=== PATIENT | male | born 1950 | race Asian ===

== ENCOUNTER 2019-01-08 12:30 | Inpatient (IN) | payer OTHER, MEDICARE ==
[~2019-01-08] VITALS: Ht 175.3 cm; Wt 73.5 kg
[~2019-01-08 12:30] MED LIST: GLIMEPIRIDE2 MG PO; JANUMET 50-5001 EACH PO
[2019-01-08 12:35] VITALS: BP 161/75
[2019-01-08 12:56] VITALS: BP 161/75
[2019-01-08] MEDS ORDERED: DEXTROSE 50% SYRINGE 50 ML IV PRN (13:00)
--- NOTE | 2019-01-08 13:05 | NUR ---
Notified Dr. Prather for orders. Temp is 101.6. Orders received and implemented.
[2019-01-08] MEDS: SODIUM CHLORIDE 0.9% 1000ML 1,000 ML IV SCH (13:32)
[2019-01-08] MEDS: ACETAMINOPHEN 325 MG TAB PO PRN ×2 (13:32→22:19)
[2019-01-08] MEDS: CEFTRIAXONE SOD 1 GM/NS 50 ML 50 ML IV SCH ×2 (13:46→20:30)
[2019-01-08 13:48] LABS: BILIRUBIN,URINE NEGATIVE (NEGATIVE); CLARITY,URINE SL CLOUDY (CLEAR); COLOR,URINE YELLOW (YELLOW); KETONES,URINE TRACE (NEGATIVE); LEUKOCYTE ESTERASE ,URINE NEGATIVE (NEGATIVE); NITRITE,URINE NEGATIVE (NEGATIVE); PROTEIN,URINE DIPSTICK 1+ (NEGATIVE); URINE UROBILINOGEN 0.2 mg/dL (0.2 - 1)
[2019-01-08 13:48] LABS: BASOPHILS # (AUTO) 0.1 (0.0-0.1); BASOPHILS % 0.5 % (0.0-1.0); EOSINOPHILS # (AUTO) 0.2 (0.0-0.4); HEMATOCRIT 36.9 % (38.2-49.6); HEMOGLOBIN 13.4 g/dL (14.0-18.0); LYMPHOCYTES # (AUTO) 1.3 (1.0-3.2); LYMPHOCYTES % 7.9 % (18.0-39.1); MEAN CORPUSCULAR HEMOGLOBIN 30.1 pg (28-32); MEAN CORPUSCULAR HGB CONC 36.3 g/dL (31-35); MEAN CORPUSCULAR VOLUME 82.9 fL (81-99); MONOCYTES # (AUTO) 1.3 (0.2-0.8); NEUTROPHILS # (AUTO) 12.9 (2.1-6.9); NEUTROPHILS % 81.4 % (38.7-80.0); PLATELET COUNT 281 x10e3/uL (140-360); RED BLOOD COUNT 4.45 x10e6/uL (4.3-5.7); RED CELL DISTRIBUTION WIDTH 13.2 % (11.7-14.4)
[2019-01-08 14:00] VITALS: BP 161/75
[2019-01-08 14:02] LABS: BACTERIA,URINE MODERATE /HPF; EPITHELIAL CELLS,URINE FEW /LPF; WBC,URINE (MAN) 0-5 /HPF (0-5)
[2019-01-08 14:17] LABS: ALANINE AMINOTRANSFERASE 21 IU/L (0-55); ALBUMIN 3.1 g/dL (3.5-5.0); ANION GAP 15.9 mmol/L (8-16); BLOOD UREA NITROGEN 11 mg/dL (7-26); BUN/CREATININE RATIO 12 (6-25); CALCIUM 9.2 mg/dL (8.4-10.2); CARBON DIOXIDE 21 mmol/L (22-29); CHLORIDE 100 mmol/L (98-107); EST GLOMERULAR FILTRATION RATE > 60 ML/MIN (60-); GLUCOSE 287 mg/dL (74-118); POTASSIUM 3.9 mmol/L (3.5-5.1); SODIUM 133 mmol/L (136-145)
[2019-01-08 14:18] LABS: ALBUMIN/GLOBULIN RATIO 0.7 (0.8-2.0); ALKALINE PHOSPHATASE 66 IU/L (40-150)
--- NOTE | 2019-01-08 15:54 | Diagnostic Imaging Report ---
EXAM: CT Chest WITH intravenous contrast 01/08/2019 12:36 PM INDICATION: COMPARISON: Pneumonia TECHNIQUE: Chest was scanned utilizing a multidetector helical scanner from the lung apex through the level of the adrenal glands after administration of IV contrast. Coronal and sagittal reformations were obtained. Routine protocol was performed. IV CONTRAST: 100mL Isovue 370 RADIATION DOSE: Total DLP: 529.4 mGy*cm. Dose modulation, iterative reconstruction, and/or weight based adjustment of the mA/kV was utilized to reduce the radiation dose to as low as reasonably achievable. COMPLICATIONS: None FINDINGS: LINES/ TUBES: None. LUNGS AND AIRWAYS: There is a 16 x 11 mm structure in the left main bronchus with additional more distal left upper lobe segmental and subsegmental bronchial obstruction. There is extensive lingular and medial left upper lobe consolidation. PLEURA: The pleural spaces are clear. HEART AND MEDIASTINUM: The thyroid gland appears unremarkable. No supraclavicular lymphadenopathy. Scattered prominent subcentimeter mediastinal lymph nodes. No axillary, subpectoral, or internal mammary lymphadenopathy. The heart is not enlarged. No pericardial effusion. UPPER ABDOMEN: Limited contrast-enhanced images of the upper abdomen demonstrate diffuse decreased hepatic parenchymal attenuation consistent with hepatic steatosis. Small sliding hiatal hernia. Otherwise, no significant abnormality in the partially visualized liver, gallbladder, spleen, adrenals, upper poles of kidneys, and pancreas. BONES: The visualized bony thorax is within normal limits. SOFT TISSUES: Unremarkable. IMPRESSION: Left mainstem bronchus 16 x 11 mm obstructive lesion, more likely aspirated content than an obstructive neoplasm. Extensive left upper lobe consolidation and bronchial obstruction likely represents postobstructive pneumonia. Hepatic steatosis. RECOMMENDATIONS: Consider bronchoscopy for evaluation of obstructing lesion in left mainstem bronchus. Consider follow-up chest CT in 6-8 weeks to assess for resolution and exclude underlying neoplasm. Findings were communicated to Kerline NICOLE of the clinical care team who understands and will communicate to Dr. Prather. Signed by: Herman Mckee MD on 01/08/2019 3:51 PM
[2019-01-08] MEDS: AZITHROMYCIN 500MG/NS 250 ML 250 ML IV SCH (15:58)
[2019-01-08 16:00] VITALS: BP 134/62
[2019-01-08] MEDS ORDERED: VITAMIN D1000 UNI1 PO (16:24)
[2019-01-08] MEDS ORDERED: MULTIPLE VITAM1 EAC1 PO (16:24)
[2019-01-08] MEDS ORDERED: Tresiba SQ (16:24)
[2019-01-08] MEDS ORDERED: JANUMET 50-1,01 EACH PO (16:24)
[2019-01-08] MEDS ORDERED: ASPIR 8181 MG PO (16:24)
[2019-01-08] MEDS: INSULIN LISPRO 100 UNIT/1 ML 3ML VIAL SQ SCH ×2 (16:40→20:40)
[2019-01-08] MEDS: SITAGLIPTIN 100 MG TAB PO SCH (17:09)
[2019-01-08] MEDS: GLIMEPIRIDE 2 MG TAB PO SCH (17:09)
[2019-01-08] MEDS: METFORMIN HCL 500 MG TAB PO SCH (17:09)
[2019-01-08 19:49] VITALS: BP 140/69
--- NOTE | 2019-01-08 20:38 | NUR ---
pulmonary consult dictated [id number]
[2019-01-08] MEDS ORDERED: IOPAMIDOL 370 MG/ML 200 ML INFUS..BTL INJ ONE (21:37)
[2019-01-08] MEDS ORDERED: SODIUM CHLORIDE 0.9% 50ML 50 ML ONE (21:37)
[2019-01-08 23:01] VITALS: BP 140/69
[2019-01-08] MEDS: PIPER-TAZ 3.375 GM 50 ML IV SCH (23:55)
[2019-01-09] VITALS (7 sets, daily range): BP systolic 109–153; BP diastolic 58–70
[2019-01-09] MEDS: SODIUM CHLORIDE 0.9% 1000ML 1,000 ML IV SCH ×3 (01:53→20:38)
--- NOTE | 2019-01-09 03:14 | Consultation ---
DATE OF CONSULTATION: 01/08/2019 Pulmonary Medicine Consult REFERRING PHYSICIAN: Dr Malachi Prather ADDITIONAL REFERRING PHYSICIAN: Dr. Ray Martines. REASON FOR REFERRAL: Abnormal chest radiography. HISTORY OF PRESENT ILLNESS: Mr. Polanco is a pleasant 68-year-old gentleman with abnormal chest radiography. The patient was in excellent state of health reportedly until one week previous. He developed cough, decreased appetite. He had some chills and associated fevers, which are measured to 101.6 here so far. No phlegm. Had rare hemoptysis one week ago. Because of worsening, he went to his primary care doctor, who appropriately diagnosed pneumonia. The patient was recommended to the hospital. In the emergency room, he was given antibiotics and CT chest demonstrates a 16 x 11 mm structure contained within the left main bronchus with additional more distal left upper lobe segmental and subsegmental bronchial pneumonitis. Rest of the lungs are unremarkable. There is appearance of early hiatal hernia. No history of allergies. No asthma. Mild GERD. He denies totally any inhalation episodes. No syncope episodes. No history of any significant pneumonias in the past. The patient had a screening chest x-ray perioperatively a year ago, which he was told it was normal. PAST MEDICAL HISTORY: Diabetes, appendectomy, lumbar surgery, hernia repair, and TURP 2018. MEDICATIONS: Medication list reviewed per the chart and record. ALLERGIES: NO KNOWN DRUG ALLERGIES. SOCIAL HISTORY: No drinking. No drugs. The patient formally smoked from age 27 to 52, two packs per day. 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 He is from [place], but lives in [place] since 1993. No pets. FAMILY HISTORY: Noncontributory. REVIEW OF SYSTEMS: GENERAL: No weight changes, chronically. HEENT: Denies jaundice. OPHTHALMOLOGIC: No double vision. ENT: No mouth ulcers. ENDOCRINE: No thyroid disease. PULMONARY: No COPD. CARDIAC: No heart attacks. GI: No constipation. : No blood in urine. INTEGUMENT: No rashes. NEUROLOGIC: No seizures. PSYCHIATRIC: No depression. OBJECTIVE: VITAL SIGNS: Afebrile, but also intermittently febrile for the majority of the day. HEENT: Normocephalic and atraumatic. GENERAL: In no distress, in bed, talking. NECK: Supple. Throat midline. LUNGS: Bilateral air entry, few rhonchi, rare wheezes. CARDIOVASCULAR: S1 and S2. No murmurs, rubs, or gallops. ABDOMINAL: Soft and nontender. EXTREMITIES: No clubbing, no cyanosis. There is no edema. INTEGUMENT: No rash or purpura. LABORATORY DATA: 16 white count, 37 hematocrit, and 281 platelets. 3.9 potassium, 11 BUN, and 0.9 creatinine. Albumin is 3.1. Globulin 4.2. IMPRESSION AND PLAN: 1. Postobstructive pneumonia. 2. Left mainstem partial obstruction, clinically more likely a common type malignant tumor. Differential diagnosis includes carcinoid, benign hematomas, cartilaginous tumors, cannot rule out this. Other malignant tumors or foreign bodies are still feasible. 3. Former smoker, quit long ago. 4. Diabetes. 5. History of lumbar surgery, appendectomy, hernia repair, and TURP. 6. Diabetes. 7. History of transurethral resection of the prostate. 8. History of lumbar surgery. At this time, we will schedule him for bronchoscopy for diagnostic purposes. We also hope for therapeutic clearance of the postobstructive state the patient in, although this may have to be a staged procedure depends on the bleed ability and pathology of the intra-airway tumor. The patient was counseled on risks, benefits, and alternatives, including the slightly increased risk of bleeding here. The patient should have aggressive antibiotics for postobstructive pneumonia. Check coagulation times as well as HIV testing. We will follow along closely. Thank you very much, Dr. Martines and Dr. Prather for this consult. Please call for questions. MD JENNIFER Braswell/AARTI /[id number] BRANDEN
--- NOTE | 2019-01-09 03:34 | History and Physical ---
This is a 68-year-old gentleman, who comes in with shortness of breath, chills, and fever. HISTORY OF PRESENTING ILLNESS: This is Mr. Crescencio Polanco who started out with shoulder pain about 4 weeks saturation, noted as shoulder pain on the tip of the shoulder and also on the back, and the patient started to have progressive pain, worsening. About a week prior to admission, the patient started to have some chills, some fever, cough and congestion and he had gone to a trip to [place] and on the way he did experience some chills, but after he came back, visited Dr. Martines, his primary care physician. The patient was found to have pneumonia and sent over for admission. PAST MEDICAL HISTORY: History of diabetes mellitus, history of hyperlipidemia, and history of vitamin D deficiency. MEDICINES: He takes at home are: 1. Cholecalciferol. 2. Vitamin D3 of 2000 units daily. 3. Glimepiride 2 mg twice a day. 4. Multivitamin. 5. Janumet, which sitagliptin with metformin twice a day . The patient is also taking Tresiba 36 units of insulin daily. No statin noted. PAST SURGICAL HISTORY: Noncontributory. FAMILY HISTORY: History of sister with diabetes mellitus. REVIEW OF SYSTEMS: Positive for chest pain, right-sided. Positive for some shortness of breath. Positive for chills. Positive for fever. Positive for fatigue. Positive for congestion and positive for nonproductive cough. No nausea or vomiting. No constipation. No rectal bleeding. No hematochezia. No hematemesis. ALLERGIES: NO KNOWN DRUG ALLERGIES. PHYSICAL EXAMINATION: VITAL SIGNS: Temperature is 101.6, T-max is 101.6, pulse of 110, blood pressure is 161/75. The patient's pulse oximetry of 96%. HEENT: Normocephalic, atraumatic. Pupils are reactive to light and accommodation. CVS: S1 and S2 are normal. Regular rate and rhythm. LUNGS: Decreased air entry into the left side. Positive for some rhonchi. EXTREMITIES: No clubbing, no cyanosis, no edema. GI: No abdominal tenderness and no guarding noted. LABORATORY VALUES: Initial white count is 15,000, hemoglobin of 13.4, hematocrit of 36.9. Neutrophil count is 81.5. Chemistry; sodium 133, potassium 3.9, BUN of 11, creatinine 0.90. Glucose is 287, albumin 3.1, globulin is 4.2. Urine, cloudy, negative leuk esterase and negative nitrites. Chemistry shows sodium of 133, potassium is 3.9, BUN 11, creatinine 0.90, glucose of 287, and total protein 7.3. MICROBIOLOGY: Urine cultures are pending. Sputum is pending. IMAGING STUDIES: CT of the chest with contrast was done, shows left main bronchus 16 x 11 obstructive lesion. We will likely aspirate, can turn into an obstructing neoplasm. Extensive left upper lobe consolidation and bronchial obstruction, likely representing postobstructive pneumonia. Also, the patient's CT shows hepatic steatosis. ASSESSMENT: Postobstructive pneumonia. The patient is currently on azithromycin and Rocephin. We will change that. The patient home medication, which includes sitagliptin, glimepiride, and metformin will be started. We will hold back on the metformin. The patient needs bronchoscopy. Dr. Lemon has been consulted. Possible biopsy and possible bronchoscopy will be done tomorrow. The patient kept n.p.o. after midnight. Further recommendation per clinical course. We will continue to monitor the patient and immediate bronchoscopy for lesion in the left main bronchus. Further recommendation per clinical course. We will continue to monitor the patient. Continue on his oral medications and also replace insulin. Further recommendation per clinical course pending. MD ELTON Sampson/MODL /[id number]
[2019-01-09] MEDS: PIPER-TAZ 3.375 GM 50 ML IV SCH ×4 (05:28→23:33)
[2019-01-09 06:42] LABS: BASOPHILS # (AUTO) 0.1 (0.0-0.1); BASOPHILS % 0.7 % (0.0-1.0); EOSINOPHILS # (AUTO) 0.2 (0.0-0.4); EOSINOPHILS % 1.4 % (0.0-6.0); HEMATOCRIT 35.7 % (38.2-49.6); HEMOGLOBIN 12.8 g/dL (14.0-18.0); LYMPHOCYTES # (AUTO) 2.1 (1.0-3.2); LYMPHOCYTES % 12.3 % (18.0-39.1); MEAN CORPUSCULAR HEMOGLOBIN 29.5 pg (28-32); MEAN CORPUSCULAR HGB CONC 35.9 g/dL (31-35); MEAN CORPUSCULAR VOLUME 82.3 fL (81-99); MONOCYTES # (AUTO) 1.6 (0.2-0.8); MONOCYTES % 9.8 % (4.4-11.3); NEUTROPHILS # (AUTO) 12.4 (2.1-6.9); NEUTROPHILS % 73.8 % (38.7-80.0); PLATELET COUNT 271 x10e3/uL (140-360); RED BLOOD COUNT 4.34 x10e6/uL (4.3-5.7); RED CELL DISTRIBUTION WIDTH 13.1 % (11.7-14.4)
[2019-01-09 06:51] LABS: INR 1.1; PROTHROMBIN TIME 14.7 seconds (11.9-14.5)
[2019-01-09 06:52] LABS: PARTIAL THROMBOPLASTIN TIME 37.4 seconds (23.8-35.5)
[2019-01-09 07:14] LABS: ANION GAP 14.8 mmol/L (8-16); BLOOD UREA NITROGEN 10 mg/dL (7-26); BUN/CREATININE RATIO 13 (6-25); CALCIUM 8.9 mg/dL (8.4-10.2); CARBON DIOXIDE 22 mmol/L (22-29); CHLORIDE 105 mmol/L (98-107); CREATININE, SERUM 0.76 mg/dL (0.72-1.25); EST GLOMERULAR FILTRATION RATE > 60 ML/MIN (60-); GLUCOSE 89 mg/dL (74-118); POTASSIUM 3.8 mmol/L (3.5-5.1); SODIUM 138 mmol/L (136-145)
--- NOTE | 2019-01-09 07:18 | Progress Note ---
DATE: SUBJECTIVE: The patient is a 68-year-old gentleman, who comes in with postobstructive pneumonia. Fever is dissipated. The patient is feeling better. Scheduled for bronchoscopy with Dr. Lemon today. Currently afebrile. No chest pain. No shortness of breath. No nausea, vomiting, or diarrhea. No constipation. No rectal bleeding. Still complains of the left shoulder pain. MEDICATIONS: He is on are aspirin on hold, azithromycin, dextrose, glimepiride, metformin, Zosyn, and fluids. The patient is also on sitagliptin. PHYSICAL EXAMINATION: VITAL SIGNS: Temperature is 98.7, pulse of 72, respirations of 18, blood pressure is 116/58, pulse oximetry of 96%. HEENT: Normocephalic, atraumatic. Pupils are reactive to light and accommodation. CVS: S1 and S2 are normal. Regular rate and rhythm. ABDOMEN: Nontender, nondistended. LUNGS: Positive for rhonchi on the left side. EXTREMITIES: No clubbing, no cyanosis, no edema. LABORATORY VALUES: Pending today. Yesterday's white count is 15.88. Chemistries are still pending. Glucose is running in the 250s to 270s. Urine is moderate bacteria. Microbiological studies, urine culture pending and sputum culture not available yet. ASSESSMENT: 1. Postobstructive pneumonia. The patient has been switched to Zosyn for better coverage. 2. Left main stem obstruction secondary to tumor. Differentials have been discussed with Dr. Lemon. The patient is scheduled for bronchoscopy today. 3. History of smoking in the past 20 years ago. He has smoked 2 packs a day. 4. Diabetes mellitus. Continue with insulin sliding scale. We will also add 10 units of Lantus at nighttime. 5. Hypertension and hyperlipidemia. We will continue monitoring the patient. Further recommendation per clinical course. We will continue to monitor the patient and possible discharge in 1 to 2 days depending on bronchoscopy and also findings on bronchoscopy. MD ELTON Sampson/USAMAL /[id number]
[2019-01-09] MEDS: INSULIN LISPRO 100 UNIT/1 ML 3ML VIAL SQ SCH ×4 (07:30→22:28)
--- NOTE | 2019-01-09 07:30 | NUR ---
PATIENT IS ALERT, AWAKE, IN STABLE CONDITION WITH NO S/S OF RESPIRATORY DISTRESS. NO PAIN VOICED. PATIENT IS NPO FOR PROCEDURE TODAY. PRESENT IN ROOM. CALL LIGHT IS WITHIN REACH, PATIENT INSTRUCTED TO CALL FOR ASSISTANCE NEEDED.
[2019-01-09 07:47] LABS: HIV 1&2 AB SCREEN NON-REACTIVE (NONREACTIVE)
[2019-01-09] MEDS: SITAGLIPTIN 100 MG TAB PO SCH ×2 (08:00→17:04)
[2019-01-09 09:23] LABS: BAND NEUTROPHILS % (MANUAL) 1 %; EOSINOPHILS % (MANUAL) 3 % (0-7); LYMPHOCYTES % (MANUAL) 15 % (19-48); MONOCYTES % (MANUAL) 10 % (3.4-9.0); NEUTROPHILS % (MANUAL) 66 % (40-74)
[2019-01-09 09:24] LABS: PLATELET ESTIMATE ADEQUATE; PLATELET MORPHOLOGY COMMENT NORMAL
[2019-01-09 09:42] LABS: RBC MORPHOLOGY COMMENT NORMAL
[2019-01-09] MEDS ORDERED: LIDOCAINE HCL 2% 30 ML TUBE ONE (10:23)
[2019-01-09] MEDS ORDERED: LIDOCAINE HCL 4% 50 ML BTL ONE (10:23)
--- NOTE | 2019-01-09 10:31 | NUR ---
PATIENT OFF THE UNIT PER STRETCHER TO OR- PATIENT IN STABLE CONDITION WITH NO S/S OF RESPIRATORY DISTRESS.
--- NOTE | 2019-01-09 13:19 | Diagnostic Imaging Report ---
EXAMINATION: CHEST SINGLE (PORTABLE) INDICATION: Status post bronchoscopy. COMPARISON: Chest CT of 01/08/2019 FINDINGS: LINES/TUBES:None LUNGS:The lung volumes are low. Left lingular and upper lobe consolidation as previously seen on chest CT of 01/08/2019. PLEURA:No pleural effusion or pneumothorax. MEDIASTINUM:The cardiomediastinal silhouette appears unchanged in size and shape. BONES/SOFT TISSUES:No acute osseous injury. ABDOMEN:No free air under the diaphragm. IMPRESSION: Status post left bronchoscopy. No pneumothorax. Unchanged consolidation of the left upper lobe and lingula as seen on prior chest CT. Signed by: Herman Mckee MD on 01/09/2019 1:16 PM
[2019-01-09] MEDS: MULTIVITAMINS/MINERALS TAB PO SCH (14:16)
[2019-01-09] MEDS: AZITHROMYCIN 500MG/NS 250 ML 250 ML IV SCH (14:16)
[2019-01-09] MEDS: CHOLECALCIFEROL 1,000 UNIT TAB PO SCH (14:16)
--- NOTE | 2019-01-09 14:18 | NUR ---
PATIENT RETURN BACK TO THE UNIT- IN STABLE CONDITION WITH NO S/S OF RESPIRATORY DISTRESS. NO PAIN VOICED. IV FLUIDS INFUSING. FAMILY MEMBERS PRESENT IN ROOM. CALL LIGHT IS WITHIN REACH, PATIENT INSTRUCTED TO CALL FOR ASSISTANCE NEEDED.
[2019-01-09] MEDS ORDERED: MIDAZOLAM HCL 2 MG/2 ML VIAL ONE (17:44)
[2019-01-09] MEDS ORDERED: FENTANYL CITRATE/PF 100MCG/2 ML INJ ONE (17:44)
[2019-01-09] MEDS ORDERED: DEXAMETHASONE SOD PHOS INJ 4 MG/ML VIAL ONE (17:59)
[2019-01-09] MEDS ORDERED: LIDOCAINE HCL 2% LOCAL INJ 5 ML SDV VIAL INJ ONE (17:59)
[2019-01-09] MEDS ORDERED: EPHEDRINE SULFATE INJ 50 MG/10 ML SYR ONE (17:59)
[2019-01-09] MEDS ORDERED: PROPOFOL IV EMULSION 10 MG/ML 20 ML VIAL ONE (17:59)
[2019-01-09] MEDS ORDERED: ONDANSETRON HCL INJ 2MG/ML 2ML 2 MG/ML VIAL ONE (17:59)
[2019-01-09] MEDS ORDERED: SEVOFLURANE INHAL SOLN 250 ML PEN BTL ONE (17:59)
--- NOTE | 2019-01-09 19:11 | NUR ---
PATIENT IS IN STABLE CONDITION WITH NO S/S OF RESPIRATORY DISTRESS. NO PAIN VOICED. IV FLUIDS INFUSING. FAMILY MEMBERS PRESENT IN ROOM. CALL LIGHT IS WITHIN REACH, PATIENT INSTRUCTED TO CALL FOR ASSISTANCE NEEDED. BEDSIDE REPORT GIVEN TO ONCOMING NURSE.
[2019-01-09] MEDS ORDERED: INSULIN GLARGINE 100 UNITS/ML VIAL SQ SCH (21:00)
--- NOTE | 2019-01-09 22:58 | NUR ---
Pulmonary Medicine DATE OF ENCOUNTER: 01/09/2019 SUBJECTIVE: No new complaints. No hemoptysis. Patient ate okay yesterday. Room air FiO2. REVIEW OF SYSTEMS: No headaches, no bleeding OBJECTIVE: VITAL SIGNS: Fevers are broken.Vital signs stable per record. HEENT: Normocephalic and atraumatic. GENERAL: In no distress, in bed, talking. NECK: Supple. Throat midline. LUNGS: Bilateral air entry, few rhonchi, rare wheezes. CARDIOVASCULAR: S1 and S2. No murmurs, rubs, or gallops. ABDOMINAL: Soft and nontender. EXTREMITIES: No clubbing, no cyanosis. There is no edema. INTEGUMENT: No rash or purpura. LABORATORY DATA: 17 white count, 36 hematocrit, 271 platelets. 3.8 potassium, 10 BUN, 0.8 creatinine. INR 1.10 IMPRESSION AND PLAN: 1. Postobstructive pneumonia. 2. Left mainstem partial airway obstructing tumor. ---s/p bronchoscopy with biopsies 3. Former smoker, quit long ago. 4. Diabetes. 5. History of lumbar surgery, appendectomy, hernia repair, and TURP. 6. Diabetes. 7. History of transurethral resection of the prostate. 8. History of lumbar surgery. Bronchoscopy today. Follow-up tumor pathology. I discussed with the patient's as well as his primary doctor. Can resume diet after bronchoscopy. --The pathology will dictate treatment--whether chemotherapy, radiation, surgical. As long as a high risk for postobstructive pneumonia persists, conservative follow-up will not be a good option even if this was a more benign etiology. Thank you very much, Dr. Martines and Dr. Prather for this consult. Please call for questions.
[2019-01-10] VITALS (8 sets, daily range): BP systolic 118–156; BP diastolic 56–74
[2019-01-10] MEDS: PIPER-TAZ 3.375 GM 50 ML IV SCH ×4 (05:00→23:03)
[2019-01-10 05:56] LABS: BASOPHILS # (AUTO) 0.1 (0.0-0.1); BASOPHILS % 0.4 % (0.0-1.0); EOSINOPHILS # (AUTO) 0.1 (0.0-0.4); EOSINOPHILS % 0.5 % (0.0-6.0); HEMATOCRIT 35.1 % (38.2-49.6); HEMOGLOBIN 12.3 g/dL (14.0-18.0); LYMPHOCYTES # (AUTO) 2.2 (1.0-3.2); LYMPHOCYTES % 13.5 % (18.0-39.1); MEAN CORPUSCULAR HEMOGLOBIN 29.1 pg (28-32); MEAN CORPUSCULAR VOLUME 83.2 fL (81-99); MONOCYTES # (AUTO) 1.4 (0.2-0.8); MONOCYTES % 8.4 % (4.4-11.3); NEUTROPHILS # (AUTO) 12.2 (2.1-6.9); NEUTROPHILS % 75.4 % (38.7-80.0); PLATELET COUNT 291 x10e3/uL (140-360); RED BLOOD COUNT 4.22 x10e6/uL (4.3-5.7); RED CELL DISTRIBUTION WIDTH 13.1 % (11.7-14.4)
[2019-01-10 06:20] LABS: ANION GAP 14.2 mmol/L (8-16); BLOOD UREA NITROGEN 13 mg/dL (7-26); BUN/CREATININE RATIO 17 (6-25); CALCIUM 9.1 mg/dL (8.4-10.2); CARBON DIOXIDE 22 mmol/L (22-29); CHLORIDE 107 mmol/L (98-107); CREATININE, SERUM 0.78 mg/dL (0.72-1.25); EST GLOMERULAR FILTRATION RATE > 60 ML/MIN (60-); GLUCOSE 158 mg/dL (74-118); POTASSIUM 4.2 mmol/L (3.5-5.1); SODIUM 139 mmol/L (136-145)
--- NOTE | 2019-01-10 06:50 | NUR ---
rounded with scene shifter nurse, patient aware of change and in no distress with family at bedside. call peter within reach and bed in lowest position.
--- NOTE | 2019-01-10 06:55 | NUR ---
ROUNDED WITH ESTIMATING ENGINEER NURSE, PATIENT ALERT AND ORIENTED WITH AT BEDSIDE AND IN NO DISTRESS, CALL FU WITHIN REACH AND BED IN LOWEST POSITION.
[2019-01-10] MEDS ORDERED: CHLORASEPTIC SPRAY 177 ML BTL MM PRN (07:15)
[2019-01-10] MEDS: GLIMEPIRIDE 2 MG TAB PO SCH ×2 (08:15→17:30)
[2019-01-10] MEDS: METFORMIN HCL 500 MG TAB PO SCH ×2 (08:15→17:30)
[2019-01-10] MEDS: MULTIVITAMINS/MINERALS TAB PO SCH (08:15)
[2019-01-10] MEDS: INSULIN GLARGINE 100 UNITS/ML VIAL SQ SCH (08:15)
[2019-01-10] MEDS: CHOLECALCIFEROL 1,000 UNIT TAB PO SCH (08:15)
[2019-01-10] MEDS: SITAGLIPTIN 100 MG TAB PO SCH ×2 (08:15→17:30)
[2019-01-10] MEDS: GUAIFENESIN 200 MG/10 ML UDC PO PRN ×2 (08:15→14:07)
[2019-01-10] MEDS: INSULIN LISPRO 100 UNIT/1 ML 3ML VIAL SQ SCH ×4 (08:15→20:36)
--- NOTE | 2019-01-10 09:52 | Progress Note ---
DATE: SUBJECTIVE: This patient was admitted to the hospital for postobstructive pneumonia. The patient underwent a bronchoscopy yesterday. The scope could not pass through the tumor. The patient biopsy taken of tumor and awaiting biopsy results. Currently, the patient is slightly congested with slight amount of cough and also with sore throat. No chest pain. No shortness of breath. No nausea, vomiting, or diarrhea. No constipation. No rectal bleeding. OBJECTIVE: VITAL SIGNS: Temperature is 97.0, pulse of 67, respirations of 16, and blood pressure is 118/56. HEENT: Normocephalic and atraumatic. Pupils are reactive to light and accommodation. CVS: S1 and S2 normal. Regular rate and rhythm. LUNGS: Positive for rhonchi on the left side. ABDOMEN: Nontender and nondistended. EXTREMITIES: No clubbing, no cyanosis, no edema. LABORATORY VALUES: [place] [address] today, hemoglobin of 12.3, and hematocrit of 35.1. Left shift present. Coags are normal. Chemistry shows sodium of 139, potassium of 4.2, BUN of 13, creatinine of 0.79, glucose is slightly elevated at 158. HIV serologies negative. Microbiology, Gram stains pending cultures, a few gram-positive rods. IMAGING STUDIES: Chest x-ray done yesterday. After bronch, unchanged consolidation of the left upper lobe. ASSESSMENT: Massive left main bronchus. PLAN: 1. To await biopsy result. 2. Postobstructive pneumonia. Continue with Zosyn and azithromycin. We will continue to monitor the patient. 3. The patient needs staging. 4. The patient will need pulmonary function testing. 5. We will continue with antidiabetic medications and also hypertensive medication. Further recommendation per clinical course. Case discussed with the at bedside and also the patient will discuss further care with Dr. Francisco eLmon. MD ELTON Sampson/AARTI /[id number]
[2019-01-10] MEDS: SODIUM CHLORIDE 0.9% 1000ML 1,000 ML IV SCH ×2 (12:10→19:26)
[2019-01-10] MEDS: AZITHROMYCIN 500MG/NS 250 ML 250 ML IV SCH (13:20)
--- NOTE | 2019-01-10 13:39 | NUR ---
Pulmonary Medicine DATE OF ENCOUNTER: 01/10/2019 SUBJECTIVE: No significant hemoptysis. Walking. No significant dyspnea worsening. Did not cough up a lot of phlegm. REVIEW OF SYSTEMS: No headaches, no bleeding OBJECTIVE: VITAL SIGNS: Fevers are broken.Vital signs stable per record. HEENT: Normocephalic and atraumatic. GENERAL: In no distress, in bed, talking. NECK: Supple. Throat midline. LUNGS: Bilateral air entry, few rhonchi, rare wheezes. CARDIOVASCULAR: S1 and S2. No murmurs, rubs, or gallops. ABDOMINAL: Soft and nontender. EXTREMITIES: No clubbing, no cyanosis. There is no edema. INTEGUMENT: No rash or purpura. LABORATORY DATA: 11 wbc. 38 hct, 157 plt. 3.5 k, cr 1.2, bun 17 IMPRESSION AND PLAN: 1. Postobstructive pneumonia. 2. Left mainstem partial airway obstructing tumor. ---s/p bronchoscopy with biopsies 3. Former smoker, quit long ago. 4. Diabetes. 5. History of lumbar surgery, appendectomy, hernia repair, and TURP. 6. Diabetes. 7. History of transurethral resection of the prostate. 8. History of lumbar surgery. Bronchoscopy done. Follow-up tumor pathology. I discussed with the patient's and patient today -The pathology will dictate treatment--whether chemotherapy, radiation, surgical. As long as a high risk for postobstructive pneumonia persists, conservative follow-up will not be a good option even if this was a more benign etiology. Continue treatment for post obstructive pneumonia in the meanwhile Thank you very much, Dr. Martines and Dr. Prather for this consult. Please call for questions.
--- NOTE | 2019-01-10 15:54 | NUR ---
Nutrition Screen Note RD Recommendation for Physician: -Continue ADA 2000 diet as ordered Plan of Care: RD following, monitoring for tolerance and adequacy Nutrition reason for involvement: Nutrition Risk Trigger MST Primary Diagnose(s): Postobstructive pneumonia. PMH: DM, HLD, Vitamin D deficiency Ht: 69in Wt: 162lb BMI: 23.9kg/m2 IBW: 160lb +/- 10% RD Assessment: (01/10) Chart reviewed. Labs and meds reviewed. 68yo M, who was admitted for SOB, chills, and fever. Visited pt in the room. 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 Today, pt ate ~100% of his lunch. Pt stated that his appetite has improved. No GI complains reported. LBM 01/10, after laxative was given. Pt denied any chewing or swallowing difficulty. Weight has been stable. Will continue to monitor and follow. Current Diet: ADA 2000 Malnutrition Evaluation (01/10/2019) The patient does not meet criteria for a specified degree of malnutrition at this time. Will re-evaluate at follow-up as appropriate. Energy intake: <75% of estimated energy requirements for >7 days Weight loss: Stable weight with reported UBW of 162lb. Fat loss: None Muscle loss: None Diet Education Needs Assessment: Diet education not indicated. Nutrition Care Level: low Signed: Isa Ashby MS, RD, LD
--- NOTE | 2019-01-10 19:46 | Operative Report ---
DATE OF PROCEDURE: 01/09/2019 OPERATIVE PROCEDURE REPORT PROCEDURE: Fiberoptic flexible bronchoscopy. SECONDARY PROCEDURES: Bronchial washes, cytology brushing, endobronchial mass biopsy, partial excisional debridement of tumor SURGEON: Francisco Lemon MD CONSENT: Informed consent from the patient in presence of . INDICATION: Obstructive left mainstem mass. ANESTHESIA: Monitored anesthesia care was utilized by anesthesiology team. OPERATIVE FINDINGS: Mr. Polanco was placed on table for procedure. Via LMA, the patient had the bronchoscope inserted into the tracheobronchial tree. The vocal cords were fully mobile. The patient was seen with a moderate amount of white purulent secretions, immediately starting from trachea and beyond. The airways were inspected and the right airway was seen to be with normal airways configuration without masses. On the left side, a ball-like obstructive mass was noted blocking the left lingula completely on superficial evaluation and partially obstructing the upper lobe outlet. Initially a 90%+ obstruction on evaluation of the VIJAYA/lingula foramen. The patient had the lower lobe inspected, which was patent. Biopsies were taken of the endobronchial mass multiple times. Cytology brushing was done. Furthermore, the patient had an attempt to mobilize the lesion to see beyond it. Partial excisional biopsies of the tumor were attempted to relieve any purulence. Eventually the left upper lobe branches were seen beyond the tumor. The left lingula was difficult to note, but a fishmouth assessment was noted of the foramen. Via fluoroscopy, a forceps was advanced into this lingula airway although we could not see visually into the lingula airways. No high amount of purulence was extracted from the immediate airway. Due to multiple biopsies and tumor bleedability, it was deemed safer to await primary pathology and treatment plan rather than a full mechanical debridement at this time. The patient originally had a 90%+ superficial obstruction of the left upper lobe foramen, but this was reduced after the biopsies to about 50%, mostly due to the fact that we were able to mobilize the pedunculated tumor on its stalk downwards. We couldnt k 9 police officer the origin of the peduncle as it was a semi-long lesion and disappeared somewhere near the fishmouthed lingula branch. Hemostasis was noted. Thereafter, the procedure was terminated and the patient allowed to recover with anesthesia. ESTIMATED BLOOD LOSS: 5 mL. COMPLICATIONS: None. 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 The lesion was not totally short and distinct, and there was limitation to size the lesion due to its obstructive nature. Status post cytology brushings, biopsy, and washings. RECOMMENDATIONS: Follow up pathology to determine best treatment of this endobronchial tumor. If repeat bronchoscopy if indicated, we can debride further and size the lesion more accurately. MD JENNIFER Braswell/AARTI /[id number]
[2019-01-10] MEDS: ACETAMINOPHEN 325 MG TAB PO PRN (22:32)
[2019-01-11] VITALS (8 sets, daily range): BP systolic 110–177; BP diastolic 60–86
[2019-01-11] MEDS: PIPER-TAZ 3.375 GM 50 ML IV SCH ×3 (05:01→17:35)
--- NOTE | 2019-01-11 07:24 | Progress Note ---
DATE: SUBJECTIVE: The patient is a 68-year-old male, who comes in with post bronchial obstruction of the left main bronchus, status post bronchoscopy and status post washing and culture and biopsy of the lesion. The patient has continued to be with coughing and congestion. Fever has broken. The patient is walking and short of breath on exertion. OBJECTIVE: VITAL SIGNS: Temperature is 99.0, pulse of 71, respirations of 18, blood pressure is 159/74, pulse oximetry of 96%. HEENT: Normocephalic, atraumatic. Pupils are reactive to light and accommodation. CVS: S1 and S2 normal. Regular rate and rhythm. LUNGS: Positive for rhonchi on the left side. ABDOMEN: Nontender, nondistended. EXTREMITIES: No clubbing, no cyanosis, and/or no edema. LABORATORY STUDIES: White count is 16,000, hemoglobin of 12.3, hematocrit of 35.1, lymphocyte 13.5, neutrophil count is 12.2. IMAGING STUDIES: Chest x-ray done after bronchoscopy shows unchanged consolidation of the left upper lobe. ASSESSMENT: 1. Massive left main bronchus tumor. 2. Postobstructive pneumonia. 3. Hypertension. 4. Hyperlipidemia. 5. Diabetes mellitus. PLAN: 1. Continue with Zosyn and azithromycin. 2. Awaiting biopsy results. 3. Need staging. 4. Needs pulmonary function test. 5. Continue with diabetic medication and antihypertensive medication. 6. We will cut out fluids today. 7. Put the patient on Solu-Medrol 40 mg b.i.d. for right now. Trend his white count and also his fever. Further recommendation per clinical course. We will monitor the patient along with Dr. Lemon. Malachi Prather MD ASJ/MODL /[id number]
[2019-01-11] MEDS: INSULIN LISPRO 100 UNIT/1 ML 3ML VIAL SQ SCH ×4 (07:30→19:55)
[2019-01-11] MEDS: SITAGLIPTIN 100 MG TAB PO SCH ×2 (08:00→17:00)
[2019-01-11] MEDS: METFORMIN HCL 500 MG TAB PO SCH ×2 (08:00→17:00)
[2019-01-11] MEDS: GUAIFENESIN 200 MG/10 ML UDC PO PRN (08:00)
[2019-01-11] MEDS: GLIMEPIRIDE 2 MG TAB PO SCH ×2 (08:00→17:00)
[2019-01-11] MEDS: INSULIN GLARGINE 100 UNITS/ML VIAL SQ SCH (08:00)
[2019-01-11] MEDS: METHYLPREDNISOLONE SOD SUCC 40 MG/ML VIAL 1ML IV SCH ×2 (09:00→17:00)
[2019-01-11] MEDS: ASPIRIN 81 MG CHEW TAB PO SCH (09:00)
[2019-01-11] MEDS: MULTIVITAMINS/MINERALS TAB PO SCH (09:00)
[2019-01-11] MEDS: CHOLECALCIFEROL 1,000 UNIT TAB PO SCH (09:00)
[2019-01-11] MEDS ORDERED: SODIUM CHLORIDE 0.9% 250ML 250 ML ONE (12:01)
[2019-01-11] MEDS: AZITHROMYCIN 500MG/NS 250 ML 250 ML IV SCH (13:55)
[2019-01-11 15:25] LABS: BASOPHILS # (AUTO) 0.1 (0.0-0.1); BASOPHILS % 0.9 % (0.0-1.0); EOSINOPHILS % 0.2 % (0.0-6.0); LYMPHOCYTES # (AUTO) 1.5 (1.0-3.2); LYMPHOCYTES % 9.7 % (18.0-39.1); MEAN CORPUSCULAR HEMOGLOBIN 29.9 pg (28-32); MEAN CORPUSCULAR HGB CONC 35.9 g/dL (31-35); MEAN CORPUSCULAR VOLUME 83.2 fL (81-99); MONOCYTES # (AUTO) 0.9 (0.2-0.8); NEUTROPHILS # (AUTO) 12.2 (2.1-6.9); NEUTROPHILS % 78.8 % (38.7-80.0); PLATELET COUNT 366 x10e3/uL (140-360); RED BLOOD COUNT 4.69 x10e6/uL (4.3-5.7); RED CELL DISTRIBUTION WIDTH 13.2 % (11.7-14.4)
--- NOTE | 2019-01-11 18:31 | NUR ---
bladder scan of patient showed the bladder to have 470 mL. per prior orders from straight cath patient prn.
--- NOTE | 2019-01-11 19:05 | NUR ---
rounded with shift production supervisor nurse, patient aware of change with family at bedside. call peter within reach and bed in lowest position.
--- NOTE | 2019-01-11 19:15 | NUR ---
Bedside rounds completed with morning nurse. Pt alert to name. Lying in bed HOB 30 degrees. Pt denies pain at this time. Bed low and locked. Call peter within reach. Family at bedside. Will continue to monitor.
[2019-01-11 20:19] LABS: LYMPHOCYTES % (MANUAL) 14 % (19-48); NEUTROPHILS % (MANUAL) 80 % (40-74)
[2019-01-11 20:20] LABS: EOSINOPHILS % (MANUAL) 1 % (0-7); MONOCYTES % (MANUAL) 5 % (3.4-9.0); PLATELET ESTIMATE ADEQUATE; PLATELET MORPHOLOGY COMMENT NORMAL; RBC MORPHOLOGY COMMENT NORMAL
--- NOTE | 2019-01-11 23:08 | NUR ---
Pulmonary Medicine DATE OF ENCOUNTER: 01/11/2019 SUBJECTIVE: No significant hemoptysis. Less cough mildly WBC still high at 15 k afebrile REVIEW OF SYSTEMS: No headaches, no bleeding OBJECTIVE: VITAL SIGNS: Vital signs stable per record. HEENT: Normocephalic and atraumatic. GENERAL: In no distress, in bed, talking. NECK: Supple. Throat midline. LUNGS: Bilateral air entry, few rhonchi, rare wheezes. CARDIOVASCULAR: S1 and S2. No murmurs, rubs, or gallops. ABDOMINAL: Soft and nontender. EXTREMITIES: No clubbing, no cyanosis. There is no edema. INTEGUMENT: No rash or purpura. LABORATORY DATA: 15.5 wbc, plt 366, hct 39 IMPRESSION AND PLAN: 1. Postobstructive pneumonia. 2. Left mainstem partial airway obstructing tumor. ---high grade lingula obstruction ---s/p bronchoscopy with biopsies 3. Former smoker, quit long ago. 4. Diabetes. 5. History of lumbar surgery, appendectomy, hernia repair, and TURP. 6. Diabetes. 7. History of transurethral resection of the prostate. 8. History of lumbar surgery. Follow-up tumor pathology. -The pathology will dictate treatment--whether chemotherapy, radiation, surgical. As long as a high risk for postobstructive pneumonia persists, conservative follow-up will not be a good option even if this was a more benign etiology. Continue treatment for post obstructive pneumonia in the meanwhile Follow up WBC for treatment effect/infection suppression Thank you very much, Dr. Martines and Dr. Prather for this consult. Please call for questions.
[2019-01-12] VITALS (8 sets, daily range): BP systolic 131–174; BP diastolic 63–94
[2019-01-12 05:56] LABS: BASOPHILS # (AUTO) 0.1 (0.0-0.1); BASOPHILS % 0.6 % (0.0-1.0); EOSINOPHILS # (AUTO) 0.1 (0.0-0.4); EOSINOPHILS % 0.6 % (0.0-6.0); HEMOGLOBIN 12.8 g/dL (14.0-18.0); LYMPHOCYTES # (AUTO) 2.5 (1.0-3.2); LYMPHOCYTES % 15.7 % (18.0-39.1); MEAN CORPUSCULAR HEMOGLOBIN 29.4 pg (28-32); MEAN CORPUSCULAR HGB CONC 35.6 g/dL (31-35); MEAN CORPUSCULAR VOLUME 82.6 fL (81-99); MONOCYTES # (AUTO) 1.3 (0.2-0.8); MONOCYTES % 8.1 % (4.4-11.3); NEUTROPHILS # (AUTO) 11.1 (2.1-6.9); NEUTROPHILS % 70.5 % (38.7-80.0); PLATELET COUNT 336 x10e3/uL (140-360); RED BLOOD COUNT 4.36 x10e6/uL (4.3-5.7); RED CELL DISTRIBUTION WIDTH 12.8 % (11.7-14.4)
[2019-01-12] MEDS: PIPER-TAZ 3.375 GM 50 ML IV SCH ×5 (06:00→23:47)
[2019-01-12 06:31] LABS: ALANINE AMINOTRANSFERASE 63 IU/L (0-55); ALBUMIN 2.8 g/dL (3.5-5.0); ALBUMIN/GLOBULIN RATIO 0.7 (0.8-2.0); ALKALINE PHOSPHATASE 48 IU/L (40-150); BLOOD UREA NITROGEN 12 mg/dL (7-26); BUN/CREATININE RATIO 16 (6-25); CALCIUM 9.6 mg/dL (8.4-10.2); CARBON DIOXIDE 23 mmol/L (22-29); CHLORIDE 103 mmol/L (98-107); CREATININE, SERUM 0.76 mg/dL (0.72-1.25); EST GLOMERULAR FILTRATION RATE > 60 ML/MIN (60-); GLUCOSE 142 mg/dL (74-118); SODIUM 137 mmol/L (136-145)
[2019-01-12] MEDS: INSULIN LISPRO 100 UNIT/1 ML 3ML VIAL SQ SCH ×4 (07:30→21:30)
[2019-01-12] MEDS: INSULIN GLARGINE 100 UNITS/ML VIAL SQ SCH (07:30)
--- NOTE | 2019-01-12 07:30 | NUR ---
REC'D PT AAOX3, LAYING IN BED, AT BEDSIDE, ON ROOM AIR, IV TO LEFT FA IS INTACT AND PATENT. BED IN LOWEST POSITION, SIDE RAILS UP X2, AND CALL FU WITHIN REACH.
[2019-01-12] MEDS: GLIMEPIRIDE 2 MG TAB PO SCH ×2 (08:48→17:52)
[2019-01-12] MEDS: CHOLECALCIFEROL 1,000 UNIT TAB PO SCH (08:48)
[2019-01-12] MEDS: MULTIVITAMINS/MINERALS TAB PO SCH (08:48)
[2019-01-12] MEDS: METFORMIN HCL 500 MG TAB PO SCH ×2 (08:48→17:52)
[2019-01-12] MEDS: METHYLPREDNISOLONE SOD SUCC 40 MG/ML VIAL 1ML IV SCH ×2 (08:48→17:52)
[2019-01-12] MEDS: ASPIRIN 81 MG CHEW TAB PO SCH (08:48)
[2019-01-12] MEDS: SITAGLIPTIN 100 MG TAB PO SCH ×2 (08:48→17:52)
[2019-01-12] MEDS: AZITHROMYCIN 500MG/NS 250 ML 250 ML IV SCH (14:30)
[2019-01-12 15:16] LABS: LYMPHOCYTES % (MANUAL) 24 % (19-48); MONOCYTES % (MANUAL) 2 % (3.4-9.0); NEUTROPHILS % (MANUAL) 73 % (40-74); PLATELET ESTIMATE ADEQUATE; PLATELET MORPHOLOGY COMMENT NORMAL; RBC MORPHOLOGY COMMENT NORMAL
--- NOTE | 2019-01-12 15:26 | NUR ---
Pulmonary Medicine DATE OF ENCOUNTER: 01/12/2019 SUBJECTIVE: 100% saturation RA Fio2 Voids x 2 BM x 1 REVIEW OF SYSTEMS: No headaches, no bleeding OBJECTIVE: VITAL SIGNS: Vital signs stable per record. HEENT: Normocephalic and atraumatic. GENERAL: In no distress, in bed, talking. NECK: Supple. Throat midline. LUNGS: Bilateral air entry, few rhonchi, rare wheezes. CARDIOVASCULAR: S1 and S2. No murmurs, rubs, or gallops. ABDOMINAL: Soft and nontender. EXTREMITIES: No clubbing, no cyanosis. There is no edema. INTEGUMENT: No rash or purpura. LABORATORY DATA: k 4.0, cr .76, 16 wbc, 36 hct, alb 2.8 IMPRESSION AND PLAN: 1. Postobstructive pneumonia. 2. Left mainstem partial airway obstructing tumor. ---high grade lingula obstruction ---s/p bronchoscopy with biopsies 3. Former smoker, quit long ago. 4. Diabetes. 5. History of lumbar surgery, appendectomy, hernia repair, and TURP. 6. Diabetes. 7. History of transurethral resection of the prostate. 8. History of lumbar surgery. Follow-up tumor pathology. -The pathology will dictate treatment--whether chemotherapy, radiation, surgical. As long as a high risk for postobstructive pneumonia persists, conservative follow-up will not be a good option even if this was a more benign etiology. Continue treatment for post obstructive pneumonia in the meanwhile Follow up WBC for treatment effect/infection suppression As patient is waiting in the hospital, I will order a brain MRI. Consider inpatient V/Q scan and consider inpatient PFTs. Thank you very much, Dr. Martines and Dr. Prather for this consult. Please call for questions.
--- NOTE | 2019-01-12 18:52 | NUR ---
PT IS IN BED LAYING DOWN WITH NO S/S OF DISTRESS. FAMILY AT THE BEDSIDE. SIDE RAILS UPX2, BED IN LOWEST POSITION, AND CALL FU WITHIN REACH.
--- NOTE | 2019-01-12 19:00 | NUR ---
BS rounds completed with morning nurse. Pt alert and oriented to name. Sitting on couch. Family at bedside. Denies pain at this time. Call peter within reach. Will continue to monitor.
--- NOTE | 2019-01-12 21:53 | NUR ---
Pt c/o frequent visits to room while he is sleeping. I explained to Pt vitals are taken every four hours and the nurse and tech do rounds every 2 hours to make sure he has no major changes in his health. He stated he is fine and doesn't want to be bothered from 12mn to 6am. Call peter within reach. at bedside.
[2019-01-13 00:04] VITALS: BP 144/76
[2019-01-13] MEDS: PIPER-TAZ 3.375 GM 50 ML IV SCH ×4 (06:30→23:55)
[2019-01-13 07:30] VITALS: BP 149/80
[2019-01-13] MEDS: INSULIN LISPRO 100 UNIT/1 ML 3ML VIAL SQ SCH ×4 (07:30→21:00)
[2019-01-13] MEDS: INSULIN GLARGINE 100 UNITS/ML VIAL SQ SCH (07:30)
--- NOTE | 2019-01-13 07:30 | NUR ---
REC'D PT AAOX3 LAYING IN BED WITH EYES OPENED, ON ROOM AIR, NO S/S OF DISTRESS, IV TO THE LEFT FA 20 GAUGE INTACT AND PATENT. SIDE RAILS UPX2, BED IN LOWEST POSITION, AND CALL FU WITHIN REACH. AT BEDSIDE.
[2019-01-13 07:51] VITALS: BP 149/80
[2019-01-13] MEDS: METHYLPREDNISOLONE SOD SUCC 40 MG/ML VIAL 1ML IV SCH ×2 (08:03→17:37)
[2019-01-13] MEDS: MULTIVITAMINS/MINERALS TAB PO SCH (08:03)
[2019-01-13] MEDS: ASPIRIN 81 MG CHEW TAB PO SCH (08:03)
[2019-01-13] MEDS: SITAGLIPTIN 100 MG TAB PO SCH ×2 (08:03→17:37)
[2019-01-13] MEDS: CHOLECALCIFEROL 1,000 UNIT TAB PO SCH (08:03)
[2019-01-13] MEDS: GLIMEPIRIDE 2 MG TAB PO SCH ×2 (08:04→17:37)
[2019-01-13] MEDS: METFORMIN HCL 500 MG TAB PO SCH ×2 (08:04→17:37)
--- NOTE | 2019-01-13 11:45 | NUR ---
PT IS SITTING UP IN BED AAOX3 AND WITH NO S/S OF DISTRESS. FAMILY IS AT BEDSIDE. BED IN LOWEST POSITION, SIDE RAILS UPX2, AND CALL FU WITHIN REACH.
[2019-01-13 12:04] VITALS: BP 156/71
[2019-01-13] MEDS: AZITHROMYCIN 500MG/NS 250 ML 250 ML IV SCH (13:02)
--- NOTE | 2019-01-13 14:14 | NUR ---
Pulmonary Medicine DATE OF ENCOUNTER: 01/13/2019 SUBJECTIVE: eating well cough better RA fio2 REVIEW OF SYSTEMS: No headaches, no bleeding OBJECTIVE: VITAL SIGNS: Vital signs stable per record. HEENT: Normocephalic and atraumatic. GENERAL: In no distress, in bed, talking. NECK: Supple. Throat midline. LUNGS: Bilateral air entry, few rhonchi, rare wheezes. CARDIOVASCULAR: S1 and S2. No murmurs, rubs, or gallops. ABDOMINAL: Soft and nontender. EXTREMITIES: No clubbing, no cyanosis. There is no edema. INTEGUMENT: No rash or purpura. LABORATORY DATA: no new updates IMPRESSION AND PLAN: 1. Postobstructive pneumonia. 2. Left mainstem partial airway obstructing tumor. ---high grade lingula obstruction ---s/p bronchoscopy with biopsies 3. Former smoker, quit long ago. 4. Diabetes. 5. History of lumbar surgery, appendectomy, hernia repair, and TURP. 6. Diabetes. 7. History of transurethral resection of the prostate. 8. History of lumbar surgery. Follow-up tumor pathology. -The pathology will dictate treatment--whether chemotherapy, radiation, surgical. As long as a high risk for postobstructive pneumonia persists, conservative follow-up will not be a good option even if this was a more benign etiology. Continue treatment for post obstructive pneumonia in the meanwhile Follow up WBC for treatment effect/infection suppression. As patient is waiting in the hospital, I will order a brain MRI. Consider inpatient V/Q scan and consider inpatient PFTs. Thank you very much, Dr. Martines and Dr. Prather for this consult. Please call for questions.
--- NOTE | 2019-01-13 15:30 | NUR ---
REFUSED FOR TECH TO TAKE VITAL SIGNS DUE TO PATIENT BEING ASLEEP. WILL ATTEMPT TO COLLECT VITAL SIGNS LATER ON.
[2019-01-13 17:00] VITALS: BP 134/68
--- NOTE | 2019-01-13 17:00 | NUR ---
AND PATIENT ALLOWED FOR VITAL SIGNS AND BLOOD SUGAR TO BE TAKEN.
--- NOTE | 2019-01-13 18:18 | NUR ---
PT IS LAYING IN BED TALKING TO FAMILY MEMBERS. NO S/S OF DISTRESS. BED IN LOWEST POSITION, SIDE RAILS UPX2, AND CALL FU WITHIN REACH.
--- NOTE | 2019-01-13 19:05 | NUR ---
Completed BS rounds with morning nurse. Pt awake and oriented to name. Denies pain at this time. Call peter within reach. Will continue to monitor.
[2019-01-13 20:00] VITALS: BP 159/78
[2019-01-14] VITALS: BP 139/66
[2019-01-14 05:40] LABS: BASOPHILS # (AUTO) 0.1 (0.0-0.1); BASOPHILS % 0.5 % (0.0-1.0); EOSINOPHILS % 0.1 % (0.0-6.0); HEMATOCRIT 37.7 % (38.2-49.6); HEMOGLOBIN 13.5 g/dL (14.0-18.0); LYMPHOCYTES # (AUTO) 2.9 (1.0-3.2); LYMPHOCYTES % 14.8 % (18.0-39.1); MEAN CORPUSCULAR HEMOGLOBIN 29.4 pg (28-32); MEAN CORPUSCULAR HGB CONC 35.8 g/dL (31-35); MEAN CORPUSCULAR VOLUME 82.1 fL (81-99); MONOCYTES # (AUTO) 1.2 (0.2-0.8); NEUTROPHILS # (AUTO) 14.3 (2.1-6.9); NEUTROPHILS % 73.4 % (38.7-80.0); PLATELET COUNT 413 x10e3/uL (140-360); RED BLOOD COUNT 4.59 x10e6/uL (4.3-5.7); RED CELL DISTRIBUTION WIDTH 13.1 % (11.7-14.4)
[2019-01-14 06:00] VITALS: BP 159/76
[2019-01-14] MEDS: PIPER-TAZ 3.375 GM 50 ML IV SCH ×2 (06:00→12:00)
[2019-01-14 06:18] LABS: BAND NEUTROPHILS % (MANUAL) 2 %; LYMPHOCYTES % (MANUAL) 28 % (19-48); MONOCYTES % (MANUAL) 7 % (3.4-9.0); NEUTROPHILS % (MANUAL) 60 % (40-74); PLATELET ESTIMATE SLIGHTLY INCREASED; PLATELET MORPHOLOGY COMMENT NORMAL
[2019-01-14 06:19] LABS: RBC MORPHOLOGY COMMENT NORMAL
[2019-01-14 06:21] LABS: ALANINE AMINOTRANSFERASE 74 IU/L (0-55); ALBUMIN/GLOBULIN RATIO 0.8 (0.8-2.0); ALKALINE PHOSPHATASE 48 IU/L (40-150); BLOOD UREA NITROGEN 15 mg/dL (7-26); BUN/CREATININE RATIO 19 (6-25); CALCIUM 9.2 mg/dL (8.4-10.2); CARBON DIOXIDE 23 mmol/L (22-29); CHLORIDE 102 mmol/L (98-107); CREATININE, SERUM 0.81 mg/dL (0.72-1.25); EST GLOMERULAR FILTRATION RATE > 60 ML/MIN (60-); GLUCOSE 240 mg/dL (74-118); SODIUM 135 mmol/L (136-145)
[2019-01-14] MEDS: INSULIN GLARGINE 100 UNITS/ML VIAL SQ SCH (07:30)
[2019-01-14] MEDS: INSULIN LISPRO 100 UNIT/1 ML 3ML VIAL SQ SCH ×2 (07:30→12:00)
[2019-01-14] MEDS: GLIMEPIRIDE 2 MG TAB PO SCH (08:39)
[2019-01-14] MEDS: METFORMIN HCL 500 MG TAB PO SCH (08:39)
[2019-01-14] MEDS: CHOLECALCIFEROL 1,000 UNIT TAB PO SCH (08:40)
[2019-01-14] MEDS: ASPIRIN 81 MG CHEW TAB PO SCH (08:40)
[2019-01-14] MEDS: MULTIVITAMINS/MINERALS TAB PO SCH (08:40)
[2019-01-14] MEDS: METHYLPREDNISOLONE SOD SUCC 40 MG/ML VIAL 1ML IV SCH (08:40)
[2019-01-14] MEDS: SITAGLIPTIN 100 MG TAB PO SCH (08:40)
[2019-01-14 09:23] VITALS: BP 159/76
--- NOTE | 2019-01-14 10:14 | Progress Note ---
DATE: SUBJECTIVE: The patient is here for postobstructive pneumonia, status post a bronchoscopy. The scope could not be passed beyond the mass. Biopsies were taken. Awaiting pending results of the biopsy. The patient is feeling better, asymptomatic. No chest pain. No shortness of breath. Coughing is better, temperature is being afebrile. OBJECTIVE: VITAL SIGNS: Temperature is 96.6, afebrile for the last 48 hours, pulse of 63, respirations of 20, blood pressure is 159/76, pulse oximetry of 98%. HEENT: Normocephalic, atraumatic. Pupils reactive to light and accommodation. CVS: S1, S2 normal. Regular rate and rhythm. ABDOMEN: Nontender, nondistended. LUNGS: Good air entry into both lungs right now. Rhonchi have been markedly diminished. EXTREMITIES: No clubbing, no cyanosis, no edema. [place]: [place] [address] today. Chemistries; sodium of 135, potassium 4.0, BUN and creatinine are normal. MEDICATIONS: Include Zosyn, Solu-Medrol 20 mg twice a day and azithromycin 250 mg. ASSESSMENT: 1. Left main bronchus tumor. 2. Postobstructive pneumonia. 3. Leukocytosis. 4. Hypertension. 5. Hyperlipidemia. 6. Diabetes mellitus. PLAN: Plan is continue Zosyn and azithromycin. The patient's Solu-Medrol will be stopped. Leukocytosis is perhaps secondary to methylprednisolone. We will go ahead and await pathology results. The patient can be discharged if clinically feeling much better. Fluids have been taken off. The patient will be discharged if okay with pulmonology and can be followed as an outpatient. Further recommendation per clinical course. We will continue to monitor the patient. The patient can be seen in the clinic in 1 to 2 days. MD EMANI SampsonJ/MODL /[id number]
[2019-01-14 11:08] VITALS: BP 180/87
[2019-01-14 12:04] VITALS: BP 146/82
[2019-01-14] MEDS ORDERED: AUGMENTIN 875-1 EACH PO (12:20)
[2019-01-14] MEDS ORDERED: BENZONATATE100 MG PO (12:21)
[2019-01-14] MEDS: AZITHROMYCIN 500MG/NS 250 ML 250 ML IV SCH (13:49)
--- NOTE | 2019-01-14 14:47 | NUR ---
PATIENT DISCHARGE HOME- PATIENT OFF THE UNIT AT 1440 PER WHEELCHAIR ACCOMPANIED BY STAFF MEMBER TO THE FRONT LOBBY. PATIENT IN STABLE CONDITION WITH NO S/S OF RESPIRATORY DISTRESS. NO PAIN VOICED. IV REMOVED WITH TIP INTACT. DISCHARGE TEACHING, INSTRUCTIONS,AND MEDICATIONS GIVEN TO THE PATIENT. ALL PERSONAL ITEMS TAKEN WITH THE PATIENT AND HIS .
--- NOTE | 2019-01-15 00:33 | NUR ---
Pulmonary Medicine DATE OF ENCOUNTER: 01/14/2019 SUBJECTIVE: eating well mobilizing, no dizzyness cough controlled REVIEW OF SYSTEMS: No headaches, no bleeding OBJECTIVE: VITAL SIGNS: Vital signs stable per record. HEENT: Normocephalic and atraumatic. GENERAL: In no distress, in bed, talking. NECK: Supple. Throat midline. LUNGS: Bilateral air entry, few rhonchi, rare wheezes. CARDIOVASCULAR: S1 and S2. No murmurs, rubs, or gallops. ABDOMINAL: Soft and nontender. EXTREMITIES: No clubbing, no cyanosis. There is no edema. INTEGUMENT: No rash or purpura. LABORATORY DATA: no new updates IMPRESSION AND PLAN: 1. Postobstructive pneumonia. 2. Left mainstem partial airway obstructing tumor. ---high grade lingula obstruction ---s/p bronchoscopy with biopsies 3. Former smoker, quit long ago. 4. Diabetes. 5. History of lumbar surgery, appendectomy, hernia repair, and TURP. 6. Diabetes. 7. History of transurethral resection of the prostate. 8. History of lumbar surgery. Follow-up tumor pathology. -The pathology will dictate treatment--whether chemotherapy, radiation, surgical. As long as a high risk for postobstructive pneumonia persists, conservative follow-up will not be a good option even if this was a more benign etiology. Continue treatment for post obstructive pneumonia in the meanwhile Follow up WBC for treatment effect/infection suppression. D/c the very low dose steroids, as the cough is better Patient defers inpatient brain MRI. Consider inpatient V/Q scan and consider inpatient PFTs. Home today on suppressive abx until workup progresses further. Expect an expedited workup given the post obstructive nature Thank you very much, Dr. Martines and Dr. Prather for this consult. Please call for questions.
== END 2019-01-14 14:49 | disposition home or self-care (01) | DRG 166 ==
LOC: MED/SURG3 12:30
PROVIDERS: ADMIT Family Medicine; ATTEND Family Medicine
PROC: 0BBG8ZX Excision of Left Upper Lung Lobe, Via Natural or Artificial Opening Endoscopic, Diagnostic (ICD-10-PCS; principal; 2019-01-09 11:11)
PROC: 0B998ZX Drainage of Lingula Bronchus, Via Natural or Artificial Opening Endoscopic, Diagnostic (ICD-10-PCS; 2019-01-09 11:11)
DX: C34.90 Malignant neoplasm of unspecified part of unspecified bronchus or lung (principal); J18.9 Pneumonia, unspecified organism; Z87.891 Personal history of nicotine dependence; E11.9 Type 2 diabetes mellitus without complications
CPT/HCPCS: 31622; 31623; 36415; 71045; 71260; 80048; 80053; 81001; 82948; 85025; 85610; 85730; 87086; 87102; 87116; 87205; 87206; 87335; 87390; 88112; 88305; 88342; 93005; 96372; G0433; G0435; J0456; J0696; J1100; J1815; J2001; J2250; J2405; J2543; J2920; J3010; J7030; J7050; Q9967

== ENCOUNTER → 2024-04-10 | Day surgery (SDC) | payer OTHER ==
[2024-04-03 10:22] LABS: BASOPHILS # (AUTO) 0.1 (0.0-0.1); BASOPHILS % 1.1 % (0.0-1.0); EOSINOPHILS # (AUTO) 0.2 (0.0-0.4); EOSINOPHILS % 2.4 % (0.0-6.0); HEMATOCRIT 41.7 % (38.2-49.6); HEMOGLOBIN 14.3 g/dL (14.0-18.0); LYMPHOCYTES % 23.4 % (18.0-39.1); MEAN CORPUSCULAR HEMOGLOBIN 29.8 pg (28-32); MEAN CORPUSCULAR HGB CONC 34.3 g/dL (31-35); MEAN CORPUSCULAR VOLUME 86.9 fL (81-99); MONOCYTES # (AUTO) 0.8 (0.2-0.8); NEUTROPHILS # (AUTO) 5.4 (2.1-6.9); NEUTROPHILS % 63.5 % (38.7-80.0); PLATELET COUNT 258 x10e3/uL (140-360); RED CELL DISTRIBUTION WIDTH 13.5 % (11.7-14.4); WHITE BLOOD COUNT 8.42 x10e3/uL (4.8-10.8)
[~2024-04-10] MED LIST changes: +ASPIR 8181 MG PO; +AUGMENTIN 875-1 EACH PO; +BENZONATATE100 MG PO; +JANUMET 50-1,01 EACH PO; +LACTATED RINGER'S 1,000 ML ONE; +MULTIPLE VITAM1 EAC1 PO; +Tresiba SQ; +VITAMIN D1000 UNI1 PO
[2024-04-10 11:51] VITALS: TEMP 97.4
[2024-04-10 12:35] VITALS: BP 110/67; PULSE 73; RESP 16; O2SAT 97
== END | disposition home or self-care (01) ==
LOC: OR 08:46
PROVIDERS: ATTEND Internal Medicine Gastroenterology
DX: K29.70 Gastritis, unspecified, without bleeding (principal); D12.8 Benign neoplasm of rectum; K21.9 Gastro-esophageal reflux disease without esophagitis; K63.89 Other specified diseases of intestine; K20.90 Esophagitis, unspecified without bleeding; K59.00 Constipation, unspecified; K64.8 Other hemorrhoids; E11.9 Type 2 diabetes mellitus without complications; I10 Essential (primary) hypertension; Z01.810 Encounter for preprocedural cardiovascular examination; Z01.812 Encounter for preprocedural laboratory examination; Z85.118 Personal history of other malignant neoplasm of bronchus and lung; Z79.82 Long term (current) use of aspirin; Z79.84 Long term (current) use of oral hypoglycemic drugs; Z79.4 Long term (current) use of insulin
CPT/HCPCS: 36415 ×2; 43239; 45385; 82948; 85025; 88305; 88342; 93005; J2470; J7121; 45378; 88304

== ENCOUNTER 2024-09-07 12:40 | Inpatient (IN) | payer MEDICARE, OTHER ==
[2024-09-07] VITALS (9 sets, daily range): BP systolic 104; BP diastolic 57–58; PULSE 88–123; RESP 18–25; TEMP 99.6–100.4; O2SAT 95–100
[~2024-09-07] VITALS: Ht 167.6 cm; Wt 72.1 kg
[~2024-09-07 12:40] MED LIST changes: -LACTATED RINGER'S 1,000 ML ONE
[2024-09-07 13:21] LABS: BASOPHILS # (AUTO) 0.1 (0.0-0.1); BASOPHILS % 0.4 % (0.0-1.0); EOSINOPHILS % 0.1 % (0.0-6.0); HEMATOCRIT 39.8 % (38.2-49.6); HEMOGLOBIN 14.4 g/dL (14.0-18.0); LYMPHOCYTES # (AUTO) 0.9 (1.0-3.2); MEAN CORPUSCULAR HEMOGLOBIN 29.9 pg (28-32); MEAN CORPUSCULAR HGB CONC 36.2 g/dL (31-35); MEAN CORPUSCULAR VOLUME 82.6 fL (81-99); MONOCYTES # (AUTO) 1.2 (0.2-0.8); MONOCYTES % 5.3 % (4.4-11.3); NEUTROPHILS # (AUTO) 19.5 (2.1-6.9); NEUTROPHILS % 89.4 % (38.7-80.0); PLATELET COUNT 199 x10e3/uL (140-360); RED BLOOD COUNT 4.82 x10e6/uL (4.3-5.7); RED CELL DISTRIBUTION WIDTH 13.7 % (11.7-14.4); WHITE BLOOD COUNT 21.82 x10e3/uL (4.8-10.8)
[2024-09-07] MEDS: SODIUM CHLORIDE 0.9% 1000ML 1,000 ML IV SCH ×3 (13:23→18:23)
[2024-09-07] MEDS: ACETAMINOPHEN 325 MG TAB PO ONE (13:23)
[2024-09-07 13:43] LABS: INR 1.31
[2024-09-07 13:44] LABS: PARTIAL THROMBOPLASTIN TIME 33.7 seconds (23.8-35.5)
[2024-09-07 13:46] LABS: INFLUENZA A AG NEGATIVE (NEGATIVE)
[2024-09-07 13:47] LABS: CORONAVIRUS COVID-19 AG NEGATIVE (NEGATIVE); INFLUENZA B AG NEGATIVE (NEGATIVE)
[2024-09-07 13:52] LABS: ALBUMIN 3.9 g/dL (3.5-5.0); ANION GAP 18.1 mmol/L (8-16); BILIRUBIN,TOTAL 0.8 mg/dL (0.2-1.2); CALCIUM 9.5 mg/dL (8.4-10.2); CREATININE, SERUM 1.22 mg/dL (0.72-1.25); POTASSIUM 4.1 mmol/L (3.5-5.1); TOTAL PROTEIN 7.7 g/dL (6.5-8.1)
[2024-09-07 14:15] LABS: BILIRUBIN,URINE NEGATIVE (NEGATIVE); CLARITY,URINE SL CLOUDY (CLEAR); COLOR,URINE YELLOW (YELLOW); GLUCOSE, URINE 500 (NEGATIVE); KETONES,URINE TRACE (NEGATIVE); LEUKOCYTE ESTERASE ,URINE TRACE (NEGATIVE); NITRITE,URINE NEGATIVE (NEGATIVE); PH,URINE 6 (5 - 7); PROTEIN,URINE DIPSTICK 2+ (NEGATIVE); URINE UROBILINOGEN 0.2 mg/dL (0.2 - 1)
[2024-09-07 14:22] LABS: BACTERIA,URINE FEW /HPF; EPITHELIAL CELLS,URINE FEW /LPF; WBC,URINE (MAN) 21-50 /HPF (0-5)
[2024-09-07] MEDS: Vancomycin IV 1 GM in SODIUM CHLORIDE 0.9% 250ML 250 ML IV ONE (15:47)
[2024-09-07] MEDS ORDERED: DEXAMETHASONE SOD PHOS 10 MG/1 ML VIAL ONE (16:47)
[2024-09-07] MEDS ORDERED: ALBUTEROL/IPRATROPIUM 3 ML NEB ONE (16:48)
[2024-09-07] MEDS: ALBUTEROL/IPRATROPIUM 3 ML NEB NEB ONE (17:47)
[2024-09-08] VITALS (10 sets, daily range): BP systolic 104–152; BP diastolic 54–85; PULSE 79–106; RESP 17–19; TEMP 97.4–98.2; O2SAT 97–100
[2024-09-08 06:39] LABS: BASOPHILS % 0.2 % (0.0-1.0); EOSINOPHILS # (AUTO) 0.1 (0.0-0.4); EOSINOPHILS % 0.4 % (0.0-6.0); HEMATOCRIT 34.4 % (38.2-49.6); HEMOGLOBIN 12.2 g/dL (14.0-18.0); LYMPHOCYTES # (AUTO) 0.6 (1.0-3.2); LYMPHOCYTES % 3.3 % (18.0-39.1); MEAN CORPUSCULAR HEMOGLOBIN 29.8 pg (28-32); MEAN CORPUSCULAR HGB CONC 35.5 g/dL (31-35); MEAN CORPUSCULAR VOLUME 83.9 fL (81-99); MONOCYTES % 5.7 % (4.4-11.3); NEUTROPHILS # (AUTO) 15.9 (2.1-6.9); NEUTROPHILS % 89.3 % (38.7-80.0); PLATELET COUNT 170 x10e3/uL (140-360); RED CELL DISTRIBUTION WIDTH 14.1 % (11.7-14.4); WHITE BLOOD COUNT 17.83 x10e3/uL (4.8-10.8)
[2024-09-08 07:09] LABS: ANION GAP 12.2 mmol/L (8-16); CALCIUM 8.7 mg/dL (8.4-10.2); CREATININE, SERUM 1.07 mg/dL (0.72-1.25); POTASSIUM 4.2 mmol/L (3.5-5.1)
[2024-09-08] MEDS ORDERED: FLOMAX0.4 MG PO (10:13)
[2024-09-08] MEDS ORDERED: LOSARTAN POTASS25 MG PO (10:13)
[2024-09-08] MEDS ORDERED: ALBUTEROL/IPRATROPIUM 3 ML NEB NEB PRN (14:15)
[2024-09-08] MEDS ORDERED: GUAIFENESIN/DEXTROMETHORPHAN LIQD 5 ML UDC NG PRN (14:15)
[2024-09-08] MEDS ORDERED: DOCUSATE SODIUM 100 MG CAP PO PRN (14:15)
[2024-09-08] MEDS ORDERED: METOPROLOL TARTRATE INJ 1 MG/ML VIAL IV PRN (14:15)
[2024-09-08] MEDS ORDERED: MELATONIN 3 MG TAB PO PRN (14:15)
[2024-09-08] MEDS: BENZONATATE 100 MG CAP PO SCH (15:11)
[2024-09-08] MEDS: LORATADINE 10 MG TAB PO SCH (15:11)
[2024-09-08] MEDS: ENOXAPARIN SOD INJ 40 MG/0.4 ML SYR SC SCH (17:23)
[2024-09-08] MEDS: FAMOTIDINE 20 MG TAB PO SCH (17:26)
[2024-09-08] MEDS ORDERED: ALBUTEROL SULF 0.083% NEB SOLN 3 ML NEB NEB PRN (21:30)
[2024-09-09] VITALS (9 sets, daily range): BP systolic 117–150; BP diastolic 61–79; PULSE 76–98; RESP 16–18; TEMP 98.4–99.5; O2SAT 97–100
[2024-09-09] MEDS: DOCUSATE SODIUM 100 MG CAP PO SCH (08:46)
[2024-09-09 09:13] LABS: BASOPHILS # (AUTO) 0.1 (0.0-0.1); BASOPHILS % 0.5 % (0.0-1.0); EOSINOPHILS # (AUTO) 0.3 (0.0-0.4); EOSINOPHILS % 1.9 % (0.0-6.0); HEMATOCRIT 32.6 % (38.2-49.6); LYMPHOCYTES % 7.3 % (18.0-39.1); MEAN CORPUSCULAR HGB CONC 36.8 g/dL (31-35); MEAN CORPUSCULAR VOLUME 81.5 fL (81-99); MONOCYTES # (AUTO) 1.1 (0.2-0.8); MONOCYTES % 8.2 % (4.4-11.3); NEUTROPHILS # (AUTO) 10.5 (2.1-6.9); NEUTROPHILS % 81.1 % (38.7-80.0); PLATELET COUNT 204 x10e3/uL (140-360); RED CELL DISTRIBUTION WIDTH 13.9 % (11.7-14.4); WHITE BLOOD COUNT 12.94 x10e3/uL (4.8-10.8)
[2024-09-09 09:39] LABS: ANION GAP 12.6 mmol/L (8-16); CALCIUM 8.1 mg/dL (8.4-10.2); CREATININE, SERUM 0.79 mg/dL (0.72-1.25); POTASSIUM 3.6 mmol/L (3.5-5.1)
[2024-09-09] MEDS: SODIUM CHLORIDE 0.9% 1000ML 1,000 ML IV SCH (18:55)
[2024-09-10] VITALS (9 sets, daily range): BP systolic 95–173; BP diastolic 61–91; PULSE 74–86; RESP 17–20; TEMP 97.6–100; O2SAT 95–100
[2024-09-10] MEDS: ACETAMINOPHEN 325 MG TAB PO PRN (11:28)
[2024-09-10] MEDS: SODIUM BICARBONATE 8.4% VIAL 100 ML in DEXTROSE 5% 1,000 ML IV SCH (11:29)
[2024-09-11] VITALS: BP 130/90; PULSE 75; RESP 18; TEMP 98; O2SAT 99
[2024-09-11 04:00] VITALS: BP 126/61; PULSE 77; RESP 18; TEMP 99.9; O2SAT 100
[2024-09-11 05:37] LABS: BASOPHILS # (AUTO) 0.1 (0.0-0.1); BASOPHILS % 0.8 % (0.0-1.0); EOSINOPHILS # (AUTO) 0.2 (0.0-0.4); HEMATOCRIT 36.4 % (38.2-49.6); HEMOGLOBIN 13.3 g/dL (14.0-18.0); LYMPHOCYTES # (AUTO) 1.4 (1.0-3.2); LYMPHOCYTES % 13.6 % (18.0-39.1); MEAN CORPUSCULAR HEMOGLOBIN 29.6 pg (28-32); MEAN CORPUSCULAR HGB CONC 36.5 g/dL (31-35); MEAN CORPUSCULAR VOLUME 81.1 fL (81-99); MONOCYTES # (AUTO) 1.5 (0.2-0.8); MONOCYTES % 14.1 % (4.4-11.3); NEUTROPHILS # (AUTO) 6.5 (2.1-6.9); NEUTROPHILS % 63.6 % (38.7-80.0); PLATELET COUNT 200 x10e3/uL (140-360); RED BLOOD COUNT 4.49 x10e6/uL (4.3-5.7); RED CELL DISTRIBUTION WIDTH 13.7 % (11.7-14.4); WHITE BLOOD COUNT 10.25 x10e3/uL (4.8-10.8)
[2024-09-11 06:01] LABS: ANION GAP 13.4 mmol/L (8-16); CALCIUM 8.8 mg/dL (8.4-10.2); CREATININE, SERUM 0.79 mg/dL (0.72-1.25)
[2024-09-11 06:02] LABS: POTASSIUM 3.4 mmol/L (3.5-5.1)
[2024-09-11 07:59] VITALS: BP 143/60; PULSE 73; RESP 18; TEMP 98.3; O2SAT 99
[2024-09-11 08:05] VITALS: BP 143/60; PULSE 73; RESP 18; TEMP 98.3; O2SAT 99
[2024-09-11 08:09] VITALS: PULSE 73; RESP 20; O2SAT 99
[2024-09-11] MEDS ORDERED: LORATADINE10 MG PO (10:05)
[2024-09-11] MEDS ORDERED: BENZONATATE100 MG PO (10:05)
[2024-09-11] MEDS ORDERED: CEPHALEXIN500 MG PO (10:05)
[2024-09-11 11:40] VITALS: BP 156/73; PULSE 75; RESP 19; TEMP 97.9; O2SAT 97
== END 2024-09-11 15:53 | disposition home or self-care (01) | DRG 871 ==
LOC: ER 13:27 → ERHOLD 15:23 → MED/SURG3 18:07
PROVIDERS: ADMIT Internal Medicine; ATTEND Internal Medicine
PROC: 3E0333Z Introduction of Anti-inflammatory into Peripheral Vein, Percutaneous Approach (ICD-10-PCS; principal; 2024-09-07)
DX: A41.50 Gram-negative sepsis, unspecified (principal); J18.9 Pneumonia, unspecified organism; J90 Pleural effusion, not elsewhere classified; E87.20 Acidosis, unspecified; C7A.8 Other malignant neuroendocrine tumors; N39.0 Urinary tract infection, site not specified; J98.11 Atelectasis; E87.1 Hypo-osmolality and hyponatremia; E11.9 Type 2 diabetes mellitus without complications; R91.8 Other nonspecific abnormal finding of lung field; J98.4 Other disorders of lung; K21.9 Gastro-esophageal reflux disease without esophagitis; Z11.52 Encounter for screening for COVID-19; Z79.4 Long term (current) use of insulin; Z79.82 Long term (current) use of aspirin; Z79.84 Long term (current) use of oral hypoglycemic drugs; Z90.2 Acquired absence of lung [part of]; Z90.49 Acquired absence of other specified parts of digestive tract; Z90.79 Acquired absence of other genital organ(s); Z87.891 Personal history of nicotine dependence
CPT/HCPCS: 36415; 71045; 71260; 80048; 80053; 81001; 82948; 83605; 84484; 85025; 85610; 85730; 87040; 87071; 87086; 87186; 87205; 93005; 94640; 94799; 99285; J0692; J1100; J1650; J7030; J7050; J7070